=== PATIENT | male | born 1950 | race Caucasian/White ===

== ENCOUNTER 2018-12-10 18:21 | Emergency (ER) | payer OTHER ==
[2018-12-10] MEDS ORDERED: THIAMINE 200 MG/2 ML INJ ONE (19:19)
[2018-12-10] MEDS ORDERED: MULTIVITAMINS 10 ML VIAL (INJ) IV ONE (19:19)
[2018-12-10] MEDS ORDERED: FOLIC ACID 5 MG/ML VIAL ONE (19:20)
[2018-12-10] MEDS ORDERED: NA CHLORIDE 0.9% 2,000 ML ONE (19:20)
[2018-12-10 19:33] LABS: Absolute Lymphocytes (CBC) 1.7 K/uL (0.7-4.9); Absolute Monocytes 0.5 K/uL (0.1-1.3); Absolute Neutrophil 2.8 K/uL (1.8-8.0); Basophils % 3.1 % (0-1.3); Eosinophils % 5.7 % (0-4.4); Hematocrit 45.7 % (39.6-49.0); Lymphocytes % 30.6 % (15.3-44.8); MPV 7.8 fL (7.6-11.3); Monocytes % 9.7 % (3.3-12.3); RBC Red Blood Cell Count 5.03 M/uL (4.33-5.43)
[2018-12-10 19:57] LABS: ALT/SGPT 29 U/L (12-78); AST/SGOT 36 U/L (15-37); Albumin 4.1 g/dL (3.4-5.0); Alkaline Phosphatase 69 U/L (45-117); BUN Blood Urea Nitrogen 6 mg/dL (7-18); Bicarbonate 26 mmol/L (21-32); Bilirubin Direct < 0.1 mg/dL (0-0.2); Bilirubin Total 0.1 mg/dL (0.2-1.0); Glucose Level 85 mg/dL (74-106); Potassium 3.7 mmol/L (3.5-5.1); Sodium Level 143 mmol/L (136-145)
[2018-12-10 20:11] LABS: Protime INR 0.91
[2018-12-10 20:32] LABS: Blood Morphology Comment NOT SEEN (NOT SEEN); Platelet Estimate ADEQ; Urine White Blood Cell Casts OK
--- NOTE | 2018-12-11 00:48 | ER ---
Nurse's Notes [facility] Name: Kana Chapman Age: 68 yrs Sex: Male : 1950 Arrival Date: 12/10/2018 Time: 18:32 Bed 7 Private MD: Diagnosis: Alcohol abuse Presentation: 12/10 18:32 Presenting complaint: EMS states: pt found face down in wet grass in front of convenience store, smells of ETOH, bottle of Everclear was found beside him. Transition of care: patient was not received from another setting of care. Onset of symptoms was December 10, 2018. Risk Assessment: Do you want to hurt yourself or someone else? Patient reports no desire to harm self or others. Initial Sepsis Screen: Does the patient meet any 2 criteria? No. Patient's initial sepsis screen is negative. Does the patient have a suspected source of infection? No. Patient's initial sepsis screen is negative. Care prior to arrival: None. 18:32 Method Of Arrival: EMS: [facility] 18:32 Acuity: ALON 3 iw Historical: - Allergies: 18:40 No Known Allergies; iw - Home Meds: 18:40 None [Active]; iw - PMHx: 18:40 Alcoholism; iw - PSHx: 18:37 Knee surgery; iw - Immunization history:: Adult Immunizations up to date. - Ebola Screening: : Patient negative for fever greater than or equal to 101.5 degrees Fahrenheit, and additional compatible Ebola Virus Disease symptoms Patient denies exposure to infectious person Patient denies travel to an Ebola-affected area in the 21 days before illness onset No symptoms or risks identified at this time. - Social history:: Smoking status: unknown. Screenin:38 Abuse screen: Denies threats or abuse. Denies injuries from another. Nutritional bp screening: No deficits noted. Tuberculosis screening: No symptoms or risk factors identified. Fall Risk No fall in past 12 months (0 pts). Secondary diagnosis (15 points) impaired mobility, No IV (0 pts). Ambulatory Aid- None/Bed Rest/Nurse Assist (0 pts). Gait- Normal/Bed Rest/Wheelchair (0 pts) Mental Status- Overestimates/Forgets Limitations (15 pts.). Total Steele Fall Scale indicates Low Risk Score (25-44 pts). Fall prevention measures have been instituted. Side Rails Up X 2 Placed close to Nursing Station Frequent Obs/Assesments occuring As available Patient and Family Educated on Fall Prevention Program and strategies. Assessment: 18:36 General: Appears distressed, unkempt, Behavior is anxious, crying, Smells of alcohol. bp Pain: Denies pain. Neuro: Level of Consciousness is awake, confused, Oriented to person, place. Cardiovascular: No deficits noted. Respiratory: Airway is patent Respiratory effort is even, unlabored, Respiratory pattern is regular, symmetrical. GI: No signs and/or symptoms were reported involving the gastrointestinal system. : No signs and/or symptoms were reported regarding the genitourinary system. EENT: No deficits noted. Derm: No deficits noted. Musculoskeletal: Circulation, motion, and sensation intact. Range of motion: intact in all extremities. 19:24 General: Appears in no apparent distress. uncomfortable, unkempt, Behavior is agitated, bp anxious, Smells of alcohol. Pain: Denies pain. Neuro: Level of Consciousness is awake, Oriented to person, place. Cardiovascular: Denies chest pain. Respiratory: Airway is patent Respiratory effort is even, unlabored, Respiratory pattern is regular, symmetrical. GI: No signs and/or symptoms were reported involving the gastrointestinal system. : No signs and/or symptoms were reported regarding the genitourinary system. Derm: Skin is pink, warm \T\ dry. 20:20 Reassessment: pt pulled out IV, PA notified. Pt appears to be sleeping at this time. PA tl2 stated to let him sleep and will recheck ETOH in the morning to reassess for discharge. 23:52 Reassessment: Pt is awake and states he wants to go home. Appears agitated. Pa tl2 notified. PA spoke with Zachary VINCENT and notified them that pt was here. Awaiting PA to speak with pt. 12/11 00:19 Reassessment: Spoke to Zachary VINCENT, they are waiting to hear back from . tl2 00:52 Reassessment: BELKIS VINCENT here to transport pt to [facility]. tl2 Psych: 12/10 19:26 Subjective: Patient's mood is sad, hopeless. Objective: Patient is defensive, Speech is bp normal, Affect is appropriate. Interventions: Patient placed in hospital gown. Suicide Risk Assessment: Sad Person Scale: Sex of patient: Male: Score 1 point. Age of patient: Score 1 point if patient is over 65. Depression: Score 1 point if signs of depression are present. Substance Abuse: Score 1 point if patient abuses alcohol or drugs. Social Support: Score 1 point if social support is lacking and/or unavailable. Safety Checks: Door is open. Patient uses 1 bottle of liquor, Last use was 2 hours ago. Vital Signs: 18:35 BP 164 / 94; Pulse 83; Resp 16; Pulse Ox 96% on R/A; Weight 81.65 kg; Height 5 ft. 10 iw in. (177.80 cm); Pain 0/10; 19:16 BP 126 / 76; Pulse 75; Resp 18; Pulse Ox 96% on R/A; tl2 20:20 BP 138 / 66; Pulse 66; Resp 18; Temp 97.6(O); Pulse Ox 97% on R/A; tl2 12/11 00:51 tl2 12/10 18:35 Body Mass Index 25.83 (81.65 kg, 177.80 cm) iw 00:51 pt refused last set of vitals tl2 [place] Coma Score: 12/10 19:20 Eye Response: to voice(3). Verbal Response: confused(4). Motor Response: obeys jr8 commands(6). Total: 13. ED Course: 18:32 Patient arrived in ED. iw 18:34 Matthieu Valle PA is PHCP. jr8 18:34 Amrik Montoya MD is Attending Physician. jr8 18:34 Jose Carlos Pool RN is Primary Nurse. bp 18:35 Triage completed. iw 18:38 Patient has correct armband on for positive identification. Placed in gown. Bed in low bp position. Call light in reach. Side rails up X2. 19:13 EKG done, by ED staff, reviewed by Matthieu ZAMORA. ag4 19:15 Inserted saline lock: 20 gauge in right antecubital area, using aseptic technique. bp Blood collected. placed by RUSSEL Vazquez. 19:27 Arm band placed on right wrist. bp 20:00 pt removed IV, bleeding controlled. tl2 12/11 00:52 No provider procedures requiring assistance completed. tl2 Administered Medications: 12/10 19:15 Drug: NS 0.9% 1000 ml Route: IV; Rate: 1000 ml; Site: right antecubital; tl2 12/11 00:55 Follow up: IV Status: Completed infusion tl2 12/10 19:15 Drug: Banana Bag - (NS 0.9% 1000 ml, foLIC Acid 1 mg, Thiamine 100 mg, Multivitamin 1 tl2 amp) Route: IV; Rate: calculated rate; Site: right antecubital; 12/11 00:56 Follow up: Bag did not finish due to pt removing IV tl2 00:56 Follow up: IV Status: IV converted to saline lock tl2 Intake: Outcome: 12/10 20:00 Discharged to Law Enforcement tl2 Condition: stable Discharge instructions given to patient. 12/11 00:48 Discharge ordered by . jr8 00:57 Patient left the ED. tl2 Signatures: Cadence Clifton RN Matthieu Weber PA PA jr8 Fabiola Mccallum RN RN tl2 Jose Carlos Pool RN Adam Dsouza ag4 Corrections: (The following items were deleted from the chart) 12/10 20:29 20:20 Pulse 66bpm; Resp 18bpm; Pulse Ox 97% RA; tl2 tl2 21:17 20:20 Reassessment: pt pulled out IV. Pt appears to be sleeping at this time. tl2 tl2
--- NOTE | 2018-12-11 00:48 | EDPHYS ---
Physician Documentation [facility] Name: Kana Chapman Age: 68 yrs Sex: Male : 1950 Arrival Date: 12/10/2018 Time: 18:32 Bed 7 Private MD: ED Physician Amrik Montoya HPI: 12/10 19:20 This 68 yrs old Male presents to ER via EMS with complaints of ETOH Abuse. jr8 19:20 Patient brought in by EMS for suspected ETOH abuse. [place] on [place] side [place] with a bottle of everclear in hand. History of alcohol abuse in past per patient. Patient alert to voice only on arrival. Slurring speech. Aroma of alocohol smelt in exam room. Currently without any complaints . Historical: - Allergies: 18:40 No Known Allergies; iw - Home Meds: 18:40 None [Active]; iw - PMHx: 18:40 Alcoholism; iw - PSHx: 18:37 Knee surgery; iw - Immunization history:: Adult Immunizations up to date. - Ebola Screening: : Patient negative for fever greater than or equal to 101.5 degrees Fahrenheit, and additional compatible Ebola Virus Disease symptoms Patient denies exposure to infectious person Patient denies travel to an Ebola-affected area in the 21 days before illness onset No symptoms or risks identified at this time. - Social history:: Smoking status: unknown. ROS: 19:20 Constitutional: Negative for fever, chills, and weight loss. jr8 19:20 All other systems are negative. Exam: 19:20 Eyes: Pupils equal round and reactive to light, extra-ocular motions intact. Lids and jr8 lashes normal. Conjunctiva and sclera are non-icteric and not injected. Cornea within normal limits. Periorbital areas with no swelling, redness, or edema. ENT: Nares patent. No nasal discharge, no septal abnormalities noted. Tympanic membranes are normal and external auditory canals are clear. Oropharynx with no redness, swelling, or masses, exudates, or evidence of obstruction, uvula midline. Mucous membranes moist. Neck: Trachea midline, no thyromegaly or masses palpated, and no cervical lymphadenopathy. Supple, full range of motion without nuchal rigidity, or vertebral point tenderness. No Meningismus. Cardiovascular: Regular rate and rhythm with a normal S1 and S2. No gallops, murmurs, or rubs. Normal PMI, no JVD. No pulse deficits. Respiratory: Lungs have equal breath sounds bilaterally, clear to auscultation and percussion. No rales, rhonchi or wheezes noted. No increased work of breathing, no retractions or nasal flaring. Abdomen/GI: Soft, non-tender, with normal bowel sounds. No distension or tympany. No guarding or rebound. No evidence of tenderness throughout. Back: No spinal tenderness. No costovertebral tenderness. Full range of motion. Skin: Warm, dry with normal turgor. Normal color with no rashes, no lesions, and no evidence of cellulitis. MS/ Extremity: Pulses equal, no cyanosis. Neurovascular intact. Full, normal range of motion. 19:20 Neuro: Orientation: to person, Mentation: able to follow commands, slow to respond, confused, Memory: unable to test, the patient is clinically intoxicated, Cranial nerves: extraocular movements are intact, Facial palsy and sensory deficits are absent. Speech is slurred, Motor: moves all fours, Sensation: no obvious gross deficits, Gait: not tested. seizure activity, is not displayed by the patient, Abnormal movements: there are no abnormal movements. Vital Signs: 18:35 BP 164 / 94; Pulse 83; Resp 16; Pulse Ox 96% on R/A; Weight 81.65 kg; Height 5 ft. 10 iw in. (177.80 cm); Pain 0/10; 19:16 BP 126 / 76; Pulse 75; Resp 18; Pulse Ox 96% on R/A; tl2 20:20 BP 138 / 66; Pulse 66; Resp 18; Temp 97.6(O); Pulse Ox 97% on R/A; tl2 12/11 00:51 tl2 12/10 18:35 Body Mass Index 25.83 (81.65 kg, 177.80 cm) iw 00:51 pt refused last set of vitals tl2 [place] Coma Score: 12/10 19:20 Eye Response: to voice(3). Verbal Response: confused(4). Motor Response: obeys jr8 commands(6). Total: 13. MDM: 18:34 Patient medically screened. jr8 12/11 00:47 Data reviewed: vital signs, nurses notes, lab test result(s), EKG, and as a result, I jr8 will discharge patient. Data interpreted: Pulse oximetry: on room air is 97 %. Interpretation: normal. Counseling: I had a detailed discussion with the patient and/or guardian regarding: the historical points, exam findings, and any diagnostic results supporting the discharge/admit diagnosis, lab results, the need for outpatient follow up, a family practitioner, to return to the emergency department if symptoms worsen or persist or if there are any questions or concerns that arise at home. ED course: Patient feeling much better. Alert and oriented x 4 and without any acute finding. Police here to take him home. Will d/c him to . 12/10 18:34 Order name: Acetaminophen; Complete Time: 20:10 [facility] 12/10 18:34 Order name: Basic Metabolic Panel; Complete Time: 20:10 [facility] 12/10 18:34 Order name: CBC with Diff; Complete Time: 20:33 8 12/10 18:34 Order name: ETOH Level; Complete Time: 20:12 [facility] 12/10 18:34 Order name: Hepatic Function; Complete Time: 20:10 12/10 18:34 Order name: PT-INR; Complete Time: 20:23 8 12/10 18:34 Order name: Ptt, Activated; Complete Time: 20:23 8 12/10 18:34 Order name: Salicylate; Complete Time: 20:10 12/10 18:34 Order name: EKG; Complete Time: 18:35 8 12/10 18:34 Order name: EKG - Nurse/Tech; Complete Time: 19:14 8 12/10 19:44 Order name: CBC Smear Scan; Complete Time: 20:33 [facility] 12/10 18:34 Order name: IV Saline Lock; Complete Time: 19:14 12/10 18:34 Order name: Labs collected and sent; Complete Time: 19:15 jr8 Administered Medications: 12/10 19:15 Drug: NS 0.9% 1000 ml Route: IV; Rate: 1000 ml; Site: right antecubital; 12/11 00:55 Follow up: IV Status: Completed infusion 2 12/10 19:15 Drug: Banana Bag - (NS 0.9% 1000 ml, foLIC Acid 1 mg, Thiamine 100 mg, Multivitamin 1 tl2 amp) Route: IV; Rate: calculated rate; Site: right antecubital; 12/11 00:56 Follow up: Bag did not finish due to pt removing IV tl2 00:56 Follow up: IV Status: IV converted to saline lock tl2 Disposition: 17:34 Co-signature as Attending Physician, Amrik Montoya MD. Disposition: 12/11/18 00:48 Discharged to Home. Impression: Alcohol abuse. - Condition is Stable. - Discharge Instructions: Alcohol Intoxication. - Medication Reconciliation Form, Thank You Letter, Antibiotic Education, Prescription Opioid Use form. - Follow up: Private Physician; When: 2 - 3 days; Reason: Recheck today's complaints, Continuance of care, Re-evaluation by your physician. - Problem is new. - Symptoms have improved. Signatures: Dispatcher [employer] EDCadence Stevenson, RN RN Matthieu Valle PA PA jr8 Fabiola Mccallum RN RN tl2 Amrik Montoya MD MD Jose Carlos Pool RN RN bp Corrections: (The following items were deleted from the chart) 00:51 12/10 18:34 Urine Dipstick-Ancillary ordered. jr8 tl2 12/11 00:57 00:48 12/11/2018 00:48 Discharged to Home. Impression: Alcohol abuse. Condition is tl2 Stable. Forms are Medication Reconciliation Form, Thank You Letter, Antibiotic Education, Prescription Opioid Use. Follow up: Private Physician; When: 2 - 3 days; Reason: Recheck today's complaints, Continuance of care, Re-evaluation by your physician. Problem is new. Symptoms have improved. jr8
--- NOTE | 2018-12-11 07:40 | EKG ---
Test Date: 2018-12-10 Test Time: 19:09:12 [employer] Worker: BLAIR MEASUREMENT RESULTS: Intervals: Rate: 84 [place]: 182 QRSD: 108 QT: 380 QTc: 449 [place]: P: 79 [place]: 182 QRS: 83 T: 53 INTERPRETIVE STATEMENTS: Normal sinus rhythm Normal ECG Compared to ECG 05/09/2015 17:01:50 No significant changes Electronically Signed On 12-11-18 07:39:16 [employer] by Jun Bauer
== END 2018-12-11 00:57 | disposition home or self-care (01) ==
LOC: ER 18:21
DX: F10.229 Alcohol dependence with intoxication, unspecified (principal)
CPT/HCPCS: 36415; 80048; 80076; 80320; 80329 ×2; 85025; 85610; 85730; 93005; 96365; 96366; 99284; J3411; J7030